=== PATIENT | male | born 1945 | race Caucasian/White ===

== ENCOUNTER → 2016-11-14 | Outpatient (CLI) | payer MEDICARE ==
[~2016-11-14] MED LIST: ATOR10TA9 PO; CARV6.252 PO; CEPH-367 PO; CEPH-375 PO; CHOL200012 PO; CLOB15CR19 TP; FERR325T20 PO; FLUT15.88 NAS; GENT30OI2 TP; INSU100C SQ-INSULIN; INSU100V8 SQ; MACI10TA PO; METO5TAB5 PO; PARO20TA4 PO; POTA10TA11 PO; SPIR25TA3 PO; TORS20TA2 PO; VITAMIN K IM; WARF5TAB7 PO
== END | disposition home or self-care (01) ==
LOC: CFH 15:28
PROVIDERS: ATTEND Internal Medicine Cardiovascular Disease
DX: R13.10 Dysphagia, unspecified (principal); R11.2 Nausea with vomiting, unspecified
CPT/HCPCS: 74220

== ENCOUNTER 2017-05-01 10:36 | Inpatient (IN) | payer MEDICARE ==
[~2017-05-01] VITALS: Ht 185.4 cm; Wt 103.6 kg
[~2017-05-01 10:36] MED LIST changes: -CHOL200012 PO; +CHOL200074 PO; +FERR325T18 PO; -FERR325T20 PO
[2017-05-01 11:20] VITALS: BP 98/64
[2017-05-01 13:17] VITALS: BP 102/62
[2017-05-01] MEDS ORDERED: morphine SULFATE 10 MG/ML, 1ML IVPush PRN (14:30)
[2017-05-01] MEDS ORDERED: ACETAMINOPHEN 325 MG TABLET PO PRN (14:30)
[2017-05-01] MEDS ORDERED: DEXTROSE 4 GM TAB.CHEW PO PRN (15:30)
[2017-05-01] MEDS ORDERED: GLUCAGON 1 MG IM PRN (15:30)
[2017-05-01 18:47] VITALS: BP 107/57
[2017-05-01] MEDS: TORSEMIDE 20 MG TABLET PO SCH (21:00)
[2017-05-01] MEDS: ATORVASTATIN 10 MG TABLET PO SCH (21:41)
[2017-05-01] MEDS: CARVEDILOL 6.25 MG TABLET PO SCH (21:42)
[2017-05-01] MEDS: SEVELAMER 800MG TABLET PO SCH (21:42)
[2017-05-01] MEDS: LIDODERM 5% PATCH TD SCH (22:36)
[2017-05-01] MEDS: INSULIN DETEMIR 100 UNITS/ML, PEN SQ-INSULIN SCH (22:38)
[2017-05-01] MEDS: SODIUM CHLORIDE FLUSH 10ML SYR IVF SCH (22:42)
[2017-05-02 01:45] VITALS: BP 94/64
[2017-05-02 05:08] LABS: HEMATOCRIT 31.4 % (39.2-51.8); HEMOGLOBIN 10.5 g/dL (13.7-18.0); WHITE BLOOD COUNT 6.8 x10^3/uL (3.4-10)
[2017-05-02 05:47] LABS: ASPARTATE AMINO TRANSFERASE 11 U/L (15-37); BLOOD UREA NITROGEN 64 mg/dL (7-18)
[2017-05-02] MEDS: DEXTROSE 50%, 50ML SYRINGE IVPush PRN ×4 (06:07→10:05)
[2017-05-02 07:08] VITALS: BP 96/68
[2017-05-02] MEDS: SEVELAMER 800MG TABLET PO SCH ×3 (08:00→17:45)
[2017-05-02] MEDS: INSULIN DETEMIR 100 UNITS/ML, PEN SQ-INSULIN SCH (08:19)
[2017-05-02] MEDS: POTASSIUM CHLORIDE 20 MEQ TAB.ER.PRT PO SCH (09:47)
[2017-05-02] MEDS: CARVEDILOL 6.25 MG TABLET PO SCH ×2 (09:47→22:32)
[2017-05-02] MEDS: METOLAZONE 5 MG TABLET PO SCH (09:48)
[2017-05-02] MEDS: SODIUM CHLORIDE FLUSH 10ML SYR IVF SCH ×2 (09:48→22:33)
[2017-05-02] MEDS: PAROXETINE 20 MG TABLET PO SCH (09:48)
[2017-05-02] MEDS: TORSEMIDE 20 MG TABLET PO SCH ×2 (09:48→21:00)
[2017-05-02] MEDS: SPIRONOLACTONE 25 MG TABLET PO SCH (09:48)
[2017-05-02] MEDS: D5%-0.9% NACL 1,000 ML IV SCH (11:00)
[2017-05-02] MEDS: INSULIN ASPART 100 UNITS/ML, PEN SQ-INSULIN SCH ×3 (11:00→22:34)
[2017-05-02 12:40] VITALS: BP 120/72
[2017-05-02 19:31] VITALS: BP 91/57
[2017-05-02 22:32] VITALS: BP 130/62
[2017-05-02] MEDS: ATORVASTATIN 10 MG TABLET PO SCH (22:32)
[2017-05-02] MEDS: LIDODERM 5% PATCH TD SCH (22:33)
[2017-05-03] MEDS: D5%-0.9% NACL 1,000 ML IV SCH (01:06)
[2017-05-03 02:19] VITALS: BP 109/70
[2017-05-03 05:33] LABS: BLOOD UREA NITROGEN 57 mg/dL (7-18)
[2017-05-03] MEDS: INSULIN ASPART 100 UNITS/ML, PEN SQ-INSULIN SCH ×4 (06:40→22:57)
[2017-05-03 07:47] VITALS: BP 96/68
[2017-05-03] MEDS ORDERED: INSULIN DETEMIR 100 UNITS/ML, PEN SQ-INSULIN SCH (08:30)
[2017-05-03] MEDS: SEVELAMER 800MG TABLET PO SCH ×3 (08:49→17:05)
[2017-05-03] MEDS: CARVEDILOL 6.25 MG TABLET PO SCH (08:53)
[2017-05-03] MEDS: POTASSIUM CHLORIDE 20 MEQ TAB.ER.PRT PO SCH (08:55)
[2017-05-03] MEDS: PAROXETINE 20 MG TABLET PO SCH (08:56)
[2017-05-03] MEDS: SPIRONOLACTONE 25 MG TABLET PO SCH (09:00)
[2017-05-03] MEDS: TORSEMIDE 20 MG TABLET PO SCH (09:00)
[2017-05-03] MEDS: METOLAZONE 5 MG TABLET PO SCH (09:00)
[2017-05-03] MEDS: SODIUM CHLORIDE FLUSH 10ML SYR IVF SCH ×2 (09:38→21:27)
[2017-05-03] MEDS ORDERED: ARANESP 100 MCG/ML **ESRD SQ SCH (10:30)
[2017-05-03 11:00] VITALS: BP 78/47
[2017-05-03] MEDS ORDERED: INSULIN ASPART 100 UNITS/ML, PEN SQ-INSULIN SCH (11:00)
[2017-05-03 13:04] VITALS: BP 91/62
[2017-05-03] MEDS ORDERED: HEPARIN 5,000 UNITS/ML, 1ML IV ONE (15:00)
[2017-05-03] MEDS ORDERED: ACETAMINOPHEN 325 MG TABLET PO PRN (15:30)
[2017-05-03] MEDS ORDERED: morphine SULFATE 10 MG/ML, 1ML IVPush PRN (15:30)
[2017-05-03] MEDS ORDERED: D5%-0.9% NACL 1,000 ML IV SCH (15:30)
[2017-05-03] MEDS ORDERED: GLUCAGON 1 MG IM PRN (15:30)
[2017-05-03] MEDS ORDERED: DEXTROSE 4 GM TAB.CHEW PO PRN (15:30)
[2017-05-03 18:42] VITALS: BP 110/65
[2017-05-03] MEDS: HEPARIN 25,000 UNITS/500ML PMX 500 ML IV PRN (19:00)
[2017-05-03] MEDS ORDERED: HEPARIN 1,000 UNITS/ML, 1ML IVPush ONE ×2 (19:30→20:00)
[2017-05-03] MEDS ORDERED: SODIUM CHLORIDE 0.9%, 500ML IVBOLUS ONE (22:00)
[2017-05-03] MEDS: ATORVASTATIN 10 MG TABLET PO SCH (22:56)
[2017-05-03] MEDS: POLYETHYLENE GLYCOL 17 GM PACKET PO PRN (22:57)
[2017-05-03] MEDS: LIDODERM 5% PATCH TD SCH (22:57)
[2017-05-04] MEDS ORDERED: SODIUM CHLORIDE 0.9%, 500ML IVBOLUS PRN
[2017-05-04 01:05] VITALS: BP 109/71
[2017-05-04 05:45] LABS: BLOOD UREA NITROGEN 59 mg/dL (7-18)
[2017-05-04] MEDS: HEPARIN 5,000 UNITS/ML, 1ML IV PRN ×2 (06:12→18:36)
[2017-05-04 06:45] VITALS: BP 95/64
[2017-05-04] MEDS ORDERED: INSULIN DETEMIR 100 UNITS/ML, PEN SQ-INSULIN SCH ×2 (08:00)
[2017-05-04 09:15] LABS: HEP B SURF. AB < 3.1 mIU/mL (0.0-10.0)
[2017-05-04] MEDS: PAROXETINE 20 MG TABLET PO SCH (09:53)
[2017-05-04] MEDS: SEVELAMER 800MG TABLET PO SCH ×3 (09:53→18:37)
[2017-05-04] MEDS: SODIUM CHLORIDE FLUSH 10ML SYR IVF SCH ×2 (09:54→21:00)
[2017-05-04] MEDS: INSULIN ASPART 100 UNITS/ML, PEN SQ-INSULIN SCH ×4 (09:54→20:29)
[2017-05-04] MEDS: CHOLECALCIFEROL 1,000 UNIT TABLET PO SCH (09:58)
[2017-05-04] MEDS ORDERED: SODIUM CHLORIDE 0.9% 1,000 ML IV ONE (10:00)
[2017-05-04] MEDS: CALCIUM ACETATE 667 MG CAPSULE PO SCH ×2 (12:06→15:51)
[2017-05-04 13:48] VITALS: BP 101/61
[2017-05-04] MEDS: HEPARIN 25,000 UNITS/500ML PMX 500 ML IV PRN (14:21)
[2017-05-04 19:17] VITALS: BP 89/48
[2017-05-04] MEDS: LIDODERM 5% PATCH TD SCH (20:13)
[2017-05-04] MEDS: ATORVASTATIN 10 MG TABLET PO SCH (20:14)
[2017-05-04] MEDS: INSULIN DETEMIR 100 UNITS/ML, PEN SQ-INSULIN SCH (20:29)
[2017-05-05 01:02] VITALS: BP 119/70
[2017-05-05 05:19] LABS: HEMATOCRIT 30.2 % (39.2-51.8); HEMOGLOBIN 9.9 g/dL (13.7-18.0); WHITE BLOOD COUNT 8.8 x10^3/uL (3.4-10)
[2017-05-05 05:20] LABS: BLOOD UREA NITROGEN 50 mg/dL (7-18)
[2017-05-05] MEDS: INSULIN ASPART 100 UNITS/ML, PEN SQ-INSULIN SCH ×4 (07:53→20:11)
[2017-05-05] MEDS: SEVELAMER 800MG TABLET PO SCH ×3 (07:54→17:34)
[2017-05-05] MEDS: INSULIN DETEMIR 100 UNITS/ML, PEN SQ-INSULIN SCH ×2 (07:54→20:12)
[2017-05-05] MEDS: CALCIUM ACETATE 667 MG CAPSULE PO SCH ×3 (08:01→17:34)
[2017-05-05] MEDS: SODIUM CHLORIDE FLUSH 10ML SYR IVF SCH ×2 (08:02→21:00)
[2017-05-05] MEDS: PAROXETINE 20 MG TABLET PO SCH (08:02)
[2017-05-05 08:06] VITALS: BP 101/63
[2017-05-05 08:07] VITALS: BP 96/63
[2017-05-05] MEDS ORDERED: BIVALIRUDIN 250 MG ONE (10:11)
[2017-05-05] MEDS ORDERED: FENTANYL PF 100 MCG/2ML ONE (10:11)
[2017-05-05] MEDS ORDERED: MIDAZOLAM 1 MG/ML, 5ML ONE (10:11)
[2017-05-05] MEDS ORDERED: TICAGRELOR 90 MG TABLET ONE (10:11)
[2017-05-05] MEDS ORDERED: LIDOCAINE 2%, 20ML ONE (10:11)
[2017-05-05] MEDS ORDERED: HEPARIN 1,000 UNITS/ML, 10ML ONE (10:11)
[2017-05-05] MEDS ORDERED: VERAPAMIL 2.5 MG/ML, 2ML ONE (10:11)
[2017-05-05] MEDS: CHOLECALCIFEROL 1,000 UNIT TABLET PO SCH (11:53)
[2017-05-05] MEDS: HEPARIN 25,000 UNITS/500ML PMX 500 ML IV PRN (14:14)
[2017-05-05 14:18] VITALS: BP 114/51
[2017-05-05 14:41] VITALS: BP 115/49
[2017-05-05] MEDS ORDERED: WARFARIN 10 MG TABLET PO-COUM ONE (18:00)
[2017-05-05] MEDS: HEPARIN 5,000 UNITS/ML, 1ML IV PRN (18:37)
[2017-05-05 19:34] VITALS: BP 95/56
[2017-05-05] MEDS: ATORVASTATIN 10 MG TABLET PO SCH (20:10)
[2017-05-05] MEDS: LIDODERM 5% PATCH TD SCH (21:26)
[2017-05-06 03:05] VITALS: BP 114/88
[2017-05-06] MEDS: HEPARIN 25,000 UNITS/500ML PMX 500 ML IV PRN ×2 (05:19→22:16)
[2017-05-06 06:38] VITALS: BP 103/68
[2017-05-06 07:10] LABS: HEMATOCRIT 30.2 % (39.2-51.8); HEMOGLOBIN 9.9 g/dL (13.7-18.0); WHITE BLOOD COUNT 7.6 x10^3/uL (3.4-10)
[2017-05-06 07:16] LABS: BLOOD UREA NITROGEN 44 mg/dL (7-18)
[2017-05-06] MEDS: INSULIN ASPART 100 UNITS/ML, PEN SQ-INSULIN SCH ×4 (08:28→20:51)
[2017-05-06] MEDS: CHOLECALCIFEROL 1,000 UNIT TABLET PO SCH (08:32)
[2017-05-06] MEDS: SEVELAMER 800MG TABLET PO SCH ×3 (08:32→17:14)
[2017-05-06] MEDS: PAROXETINE 20 MG TABLET PO SCH (08:32)
[2017-05-06] MEDS: CALCIUM ACETATE 667 MG CAPSULE PO SCH ×3 (08:33→17:14)
[2017-05-06] MEDS: INSULIN DETEMIR 100 UNITS/ML, PEN SQ-INSULIN SCH ×2 (08:41→20:52)
[2017-05-06] MEDS: SODIUM CHLORIDE FLUSH 10ML SYR IVF SCH ×2 (08:58→20:50)
[2017-05-06] MEDS ORDERED: DIPHENHYDRAMINE/ZINC CRM 2%, 30GM TP PRN (11:30)
[2017-05-06 12:49] VITALS: BP 116/69
[2017-05-06] MEDS ORDERED: WARFARIN 10 MG TABLET PO-COUM ONE (18:00)
[2017-05-06 19:12] VITALS: BP 90/50
[2017-05-06] MEDS: ATORVASTATIN 10 MG TABLET PO SCH (20:52)
[2017-05-06] MEDS: LIDODERM 5% PATCH TD SCH (20:54)
[2017-05-07 01:08] VITALS: BP 103/69
[2017-05-07 05:31] LABS: ANTI-Xa-UNFRACTIONATED HEP 0.4 IU/mL (0.30-0.70)
[2017-05-07 05:37] LABS: BLOOD UREA NITROGEN 43 mg/dL (7-18)
[2017-05-07 07:23] VITALS: BP 102/57
[2017-05-07] MEDS: SODIUM CHLORIDE FLUSH 10ML SYR IVF SCH (09:00)
[2017-05-07] MEDS ORDERED: GENTAMICIN CRM 0.1%, 30GM TP SCH (10:00)
[2017-05-07] MEDS: SEVELAMER 800MG TABLET PO SCH ×2 (10:25→17:26)
[2017-05-07] MEDS: POLYETHYLENE GLYCOL 17 GM PACKET PO PRN (10:25)
[2017-05-07] MEDS: CHOLECALCIFEROL 1,000 UNIT TABLET PO SCH (10:26)
[2017-05-07] MEDS: CALCIUM ACETATE 667 MG CAPSULE PO SCH ×3 (10:26→17:26)
[2017-05-07] MEDS: PAROXETINE 20 MG TABLET PO SCH (10:26)
[2017-05-07] MEDS: INSULIN ASPART 100 UNITS/ML, PEN SQ-INSULIN SCH ×3 (10:28→17:26)
[2017-05-07] MEDS: INSULIN DETEMIR 100 UNITS/ML, PEN SQ-INSULIN SCH (10:28)
[2017-05-07] MEDS ORDERED: CALC667C PO (15:34)
[2017-05-07] MEDS ORDERED: CHOL10003 PO (15:34)
[2017-05-07] MEDS ORDERED: SEVE800T7 PO (15:34)
[2017-05-07] MEDS ORDERED: WARFARIN 7.5 MG TABLET PO-COUM ONE (18:00)
== END 2017-05-07 18:40 | disposition home or self-care (01) | DRG 286 ==
LOC: 5SO 11:37
PROVIDERS: ADMIT Hospitalist; ATTEND Hospitalist
PROC: 4A023N7 Measurement of Cardiac Sampling and Pressure, Left Heart, Percutaneous Approach (ICD-10-PCS; principal; 2017-05-05)
PROC: B2111ZZ Fluoroscopy of Multiple Coronary Arteries using Low Osmolar Contrast (ICD-10-PCS; 2017-05-05)
PROC: B2151ZZ Fluoroscopy of Left Heart using Low Osmolar Contrast (ICD-10-PCS; 2017-05-05)
PROC: 5A1D60Z (ICD-10-PCS; 2017-05-05)
DX: I05.9 Rheumatic mitral valve disease, unspecified (principal); N18.6 End stage renal disease; I13.2 Hypertensive heart and chronic kidney disease with heart failure and with stage 5 chronic kidney disease, or end stage renal disease; J96.10 Chronic respiratory failure, unspecified whether with hypoxia or hypercapnia; D68.59 Other primary thrombophilia; I95.9 Hypotension, unspecified; E11.22 Type 2 diabetes mellitus with diabetic chronic kidney disease; E11.51 Type 2 diabetes mellitus with diabetic peripheral angiopathy without gangrene; I50.30 Unspecified diastolic (congestive) heart failure; E87.1 Hypo-osmolality and hyponatremia; R55 Syncope and collapse; W18.30XA Fall on same level, unspecified, initial encounter; I27.2 Other secondary pulmonary hypertension; E78.5 Hyperlipidemia, unspecified; I25.10 Atherosclerotic heart disease of native coronary artery without angina pectoris; I34.0 Nonrheumatic mitral (valve) insufficiency; I27.81 Cor pulmonale (chronic); D63.8 Anemia in other chronic diseases classified elsewhere; E11.649 Type 2 diabetes mellitus with hypoglycemia without coma; E55.9 Vitamin D deficiency, unspecified; E87.8 Other disorders of electrolyte and fluid balance, not elsewhere classified; G47.33 Obstructive sleep apnea (adult) (pediatric); J45.909 Unspecified asthma, uncomplicated; H26.9 Unspecified cataract; I69.320 Aphasia following cerebral infarction; Z79.01 Long term (current) use of anticoagulants; Z79.4 Long term (current) use of insulin; Z82.3 Family history of stroke; Z85.828 Personal history of other malignant neoplasm of skin; Z87.891 Personal history of nicotine dependence; Z95.2 Presence of prosthetic heart valve; Z99.2 Dependence on renal dialysis; Z88.8 Allergy status to other drugs, medicaments and biological substances
CPT/HCPCS: 36415; 71010; 80048; 80053; 80069; 82306; 82330; 82947; 82962; 83735; 83970; 84100; 84443; 85025; 85520; 85610; 86706; 87340; 93458; 99156; C1760; C1769; C1894; J0583; J0882; J1644; J1815; J2250; J3010; J3490; J7042; J7030; Q9967